=== PATIENT | female | born 1980 | race Caucasian/White ===

== ENCOUNTER → 2023-08-18 18:57 | Outpatient (REF) | payer BC, SELFPAY | LOC: WDC 18:57 | PROVIDERS: ATTENDING PHYSICIAN Physician Assistant Medical | DX: Z12.31 Encounter for screening mammogram for malignant neoplasm of breast (principal) | CPT/HCPCS: 77063; 77067 ==

== ENCOUNTER 2024-08-14 12:04 | Emergency (ER) | payer BC, SELFPAY ==
[2024-08-14 12:12] VITALS: BP 123/78
[2024-08-14 12:35] LABS: % Basophils 0.2 % (0-2); % Eosinophils 0.6 % (0-6); % Immature Granulocytes 0.2 % (0-0.5); % Lymphocytes 29.2 % (20.5-51.1); % Neutrophils 63.8 % (42.2-75.2); Absolute Lymphocytes 1.4 10^3/uL (1.2-3.4); Absolute Monocytes 0.3 10^3/uL (0.1-0.6); Hematocrit 42.7 % (37.0-47.0); Hemoglobin 15.1 g/dL (12.0-16.0); Mean Corp Hgb Conc. 35.4 g/dL (33.0-37.0); Mean Corpuscular Hgb 30.3 pg (27.0-31.0); Mean Corpuscular Volume 85.7 fL (81.0-99.0); Mean Platelet Volume 9.1 fL (7.4-10.4); Nucleated Red Blood Cells % 0 %; Platelet Count 223 10^3/uL (130-400); Red Blood Cell Count 4.98 10^6/uL (4.20-5.40); Red Cell Dist. Width 12.4 % (11.5-14.5); White Blood Cell Count 4.7 10^3/uL (4.8-10.8)
[2024-08-14 12:38] LABS: INR 0.95
[2024-08-14 12:43] LABS: ALT (SGPT) 22 U/L (0-35); AST (SGOT) 25 U/L (14-36); Albumin 4.4 g/dl (3.5-5.0); Alkaline Phosphatase 51 U/L (38-126); Blood Urea Nitrogen 13 mg/dl (7-17); Calcium 9.7 mg/dl (8.4-10.2); Carbon Dioxide 29 mmol/L (22-30); Chloride 103 mmol/L (98-107); Glucose 110 mg/dl (70-99); Potassium 4.4 mmol/L (3.5-5.1); Sodium 139 mmol/L (135-145); Total Bilirubin 0.6 mg/dl (0.2-1.3); Total Protein 7.4 g/dl (6.3-8.2); eGFR > 60.00
[2024-08-14 12:54] LABS: Troponin I < 0.012 ng/ml
[2024-08-14 13:02] LABS: HCG, Serum Qualitative Screen Negative
[2024-08-14 14:25] VITALS: BP 106/72
[2024-08-14] MEDS: MAALOX 40 PO (14:28)
--- NOTE | 2024-08-14 15:04 | ED.GENMED ---
History of Present Illness
General
Chief Complaint: Chest Pain
Source: patient
Exam Limitations: none
Time Seen by Provider: 08/14/24 13:05
Nursing documentation reviewed up to this point in time: agreed with
History of Present Illness
History of Present Illness:
pt is a 43 y/o F
h/ho GERD, h/o anxiety
here with chest discomfort x 1 week
felt as a sharp pain that is fairly constant with episodes of more intense pain lasting minutes
seem to be followed by an anxiety attack
she natalia after several ays of this, she went to her PCP 2 days ago who thought it was anxiety
prescribed her effexor which she just started taking and pt also started an OTC med for menopausal sypmtoms
Past History
Past History
ED Past Medical History: Other (Migraines)
ED Past Surgical History: None
Social History
Tobacco: Non-smoker
Alcohol: None
Personal:
Living: with family
Family History
Family History: Other (No significant)
Course
Orders/Labs/Results
Orders:
Orders
08/14/24 12:05
EKG [Electrocardiogram (*1)] Urgent
Reason for Study: Chest Pain
EKG- Treatment ONCE
08/14/24 12:16
Test Result ONCE
08/14/24 12:20
Complete Blood Count/With Diff Urgent
Comprehensive Metabolic Panel Urgent
D-Dimer Urgent
Comment: ADD ON
HCG, Serum Qualitative Screen Urgent
Lipase Urgent
Comment: ADD ON
Prothrombin Time Urgent
Troponin I Urgent
08/14/24 14:02
EKG- Treatment ONCE
Mag Hydrox/Al Hydrox/Simeth [Maalox] 30 ml Phenobarb/Hyoscy/Atropine/Scop [] 10 ml PO NOW
CR Chest - 2 Views Urgent
Comment:
Reason For Exam: chest pain x 1 week
08/14/24 14:26
Phenobarb/Hyoscy/Atropine/Scop [] 10 ml .ROUTE .STK-MED ONE
08/14/24 14:27
Mag Hydrox/Al Hydrox/Simeth [Maalox] 30 ml .ROUTE .STK-MED ONE
08/14/24 15:11
Add On- LAB Urgent
Tests Added?: lipase
08/14/24 15:28
Troponin I Urgent
08/14/24 15:30
Electrocardiogram (*1) Urgent
Reason for Study: Chest Pain
08/14/24 16:16
Add On- LAB Urgent
Tests Added?: d dimer
08/14/24 16:56
Lorazepam [Ativan] 1 mg PO NOW STA
Abnormal Lab Results
08/14/24
12:20
WBC 4.7 L 10^3/uL
(4.8-10.8)
Glucose 110 H mg/dl
(70-99)
08/14/24 12:20
08/14/24 12:20
Vital Signs
Initial and Last Documented VS:
Initial Vital Signs
Temp Pulse Resp BP Pulse Ox
36.6 C 73 18 123/78 100
08/14/24 12:12 08/14/24 12:12 08/14/24 12:12 08/14/24 12:12 08/14/24 12:12
Last Documented Vital Signs
Temp Pulse Resp BP Pulse Ox
36.6 C 66 16 118/78 97
08/14/24 12:12 08/14/24 17:02 08/14/24 17:02 08/14/24 17:02 08/14/24 17:02
ED Attending Note
-
Portions of this chart may have been created with voice recognition software.� Occasional wrong word or��sound alike� substitutions may have occurred due to the inherent limitations of voice recognition software.
Discharge Plan
Departure
Patient Disposition: Home (Routine Discharge)
Date of Disposition: 08/14/24
Time of Disposition: 16:54
Patient with high blood pressure during this ER visit?: No
Condition: Fair
Covid-19: Not Applicable
Discharge Problem:
Chest pain due to GERD, Anxiety
Instructions: Acid Reflux and GERD in Adults (DC), Chest Pain PCP Follow Up
Prescriptions:
No Action
potassium chloride [Klor-Con M20] 20 MEQ tablet,ER particles/crystals
20 meq PO DAILY Qty: 7 0RF
Referrals:
Shanda Rosado PA-C [Family Provider] - Follow up in 2-3 days
Keturah Gan MD [Active] - Follow up in 1 week
Activity Restrictions/Additional Instructions:
YOUR SYPMTOMS ARE LIKELY DUE TO ACID REFLUX AND ANXIETY
TRY PEPCID TWICE A DAY FOR 7-14 DAYS
YOU SHOULD CALL YOUR GI AND FOLLOW UP
AVOID ACIDIC FOODS, EATING LATE AT NIGHT, ALCOHOL, IBUPROFEN
YOUR CHEST PAIN DOES NOT SOUND CARDIAC AND YOU HAD 2 NEGATIVE TROPONINS AND NORMAL EKG
YOU CAN ALSO FOLLOW UP WITH CARDIOLOGY A CONSULTATION WELL
RETURN FOR: SEVERE SUDDEN WORSENING OF SYPMTOMS, PASSING OUT, VOMTIING BLOOD, BLACK STOOL OR ANY CONCERNS
CONTINUE YOUR EFFEXOR
YOU WERE GIVEN A DOSE OF ATIVAN TO HELP WITH THE ANXIETY
Interventions
Interventions:
*Risk Screen - Suicide Last Done: 08/14/24 12:15
*General Assessment Last Done: 08/14/24 12:15
*Neglect/Abuse Screening Last Done: 08/14/24 12:15
*ED- Fall Risk Assessment Last Done: 08/14/24 12:55
*ED COVID-19 Vaccine History Last Done: 08/14/24 12:15
*Nursing Disposition Last Done: 08/14/24 17:02
ED- Cardiac Assessment Last Done: 08/14/24 12:55
Discharge Date and Time
Discharge Date/Time: 08/14/24 17:02
Print Language: FRENCH
[2024-08-14 15:45] LABS: Lipase 104 U/L (23-300)
[2024-08-14 16:07] LABS: Troponin I < 0.012 ng/ml
[2024-08-14 16:31] LABS: D-Dimer < 0.27 ug/mlFEU (0.00-0.50)
[2024-08-14] MEDS: ATIVAN 1 MG PO (16:59)
[2024-08-14 17:02] VITALS: BP 118/78
== END 2024-08-14 17:02 | disposition home or self-care (01) ==
LOC: EMR 12:04
PROVIDERS: Emergency Medicine; Physician Assistant; EMERGENCY PHYSICIAN Student in an Organized Health Care Education/Training Program; FAMILY PHYSICIAN Physician Assistant Medical
DX: R07.89 Other chest pain (principal); K21.9 Gastro-esophageal reflux disease without esophagitis; F41.9 Anxiety disorder, unspecified
CPT/HCPCS: 99285; 71046; 80053; 83690; 84484; 84703; 85025; 85379; 85610; 93005

== ENCOUNTER → 2024-09-13 16:02 | Outpatient (REF) | payer BC, SELFPAY | LOC: WDC 16:02 | PROVIDERS: ATTENDING PHYSICIAN Physician Assistant Medical | DX: Z12.31 Encounter for screening mammogram for malignant neoplasm of breast (principal) | CPT/HCPCS: 77063; 77067 ==

== ENCOUNTER → 2024-10-06 07:05 | Outpatient (REF) | payer BC, SELFPAY | LOC: RCS 07:05 | PROVIDERS: ATTENDING PHYSICIAN Internal Medicine Cardiovascular Disease; FAMILY PHYSICIAN Physician Assistant Medical | DX: R07.89 Other chest pain (principal) | CPT/HCPCS: 93306 ==

== ENCOUNTER → 2024-10-13 07:40 | Outpatient (REF) | payer BC, SELFPAY | LOC: RCS 07:40 | PROVIDERS: ATTENDING PHYSICIAN Internal Medicine Cardiovascular Disease; FAMILY PHYSICIAN Physician Assistant Medical | DX: R07.89 Other chest pain (principal) | CPT/HCPCS: 93017 ==